=== PATIENT | male | born 2000 | race African-American/Black ===

== ENCOUNTER 2021-09-13 08:00 | Outpatient (CLI) | payer OTHER | END 2021-09-13 08:01 | disposition home or self-care (01) | LOC: LAB.N 08:00 | PROVIDERS: ATTEND Family Medicine | DX: J06.9 Acute upper respiratory infection, unspecified (principal); Z20.822 Contact with and (suspected) exposure to COVID-19 ==

== ENCOUNTER 2022-03-17 14:26 | Outpatient (CLI) | payer OTHER ==
--- NOTE | 2022-03-17 15:12 | MRI Report ---
PROCEDURE: LUMBAR SPINE WO INDICATIONS: LUMBAR RADICULOPATHY TECHNIQUE: Noncontrast sagittal T1 spin echo and T2 fast echo, sagittal STIR, axial T1 and T2 fast spin echo thr ough the lumbar spine. In cases with scoliosis, additional coronal T2 fast spin echo may be performe d. COMPARISON: None. FINDINGS: Image quality: Excellent. Alignment and Curvature: There is normal bony alignment. Bone Marrow: Marrow is of normal overall signal. No acute vertebral body compression fractures. Spinal Cord: Conus medullaris terminates at the normal level. Visualized cord demonstrates normal s ignal and size. Paraspinous Soft Tissues: No paravertebral masses. T12-L1: Normal in appearance. L1-L2: Normal in appearance. L2-L3: Normal in appearance. L3-L4: Normal in appearance. L4-L5: Normal in appearance. L5-S1: Normal in appearance. IMPRESSION: A normal MRI of the lumbar spine. No spinal canal stenosis, neural foraminal stenosis, or findings of focal nerve root impingement. No pain generating lesion identified. Reviewed by: Robert Sawyer MD on 03/17/2022 3:11 PM PDT Approved by: Robert Sawyer MD on 03/17/2022 3:11 PM PDT Station ID: [id number]
== END 2022-03-17 14:27 | disposition home or self-care (01) ==
LOC: DI 14:26
PROVIDERS: ATTEND Student in an Organized Health Care Education/Training Program
DX: M54.16 Radiculopathy, lumbar region (principal)

== ENCOUNTER 2022-07-06 08:32 | Outpatient (CLI) | payer OTHER ==
--- NOTE | 2022-07-06 12:54 | MRI Report ---
PROCEDURE: MRI brain without contrast INDICATIONS: HEADACHE TECHNIQUE: Noncontrast axial T1 spin echo, axial T2 fast spin echo, sagittal and axial FLAIR, coronal T2 fast sp in echo, axial gradient echo, axial diffusion and ADC through the brain. COMPARISON: None. FINDINGS: Image quality: Excellent. CSF Spaces: Basal cisterns are patent. No extra-axial fluid collections. Ventricles are normal in size and shape. Brain: No intracranial masses or hemorrhage. Amaro/white matter interface is normal. Brainstem appe ars normal. Diffusion-weighted images demonstrate no acute ischemic insult. No chronic ischemic ins ults. Normal intravascular flow voids are present. Skull and face: Calvarium has normal marrow signal. Orbits appear normal. Sinuses: Small retention cyst in the right maxillary and left sphenoid sinus measures less than 1 cm IMPRESSION: Normal MRI of the brain Small right maxillary and left sphenoid sinus retention cysts Reviewed by: Khari Florian MD on 07/06/2022 11:52 AM [facility] Approved by: Khari Florian MD on 07/06/2022 11:52 AM [facility] Station ID: [id number]
== END 2022-07-06 08:33 | disposition home or self-care (01) ==
LOC: DI 08:32
PROVIDERS: ATTEND General Practice
DX: R51.9 Headache, unspecified (principal); R11.0 Nausea; J34.1 Cyst and mucocele of nose and nasal sinus

== ENCOUNTER 2022-12-25 09:36 | Emergency (ER) | payer OTHER ==
[2022-12-25] MEDS ORDERED: SODIUM CHLORIDE 0.9% 1,000 ML IV STA (11:45)
[2022-12-25] MEDS ORDERED: ONDANSETRON 4 MG/2 ML VIAL IVP STA (11:45)
[2022-12-25 11:58] LABS: BASOPHILS % (AUTO) 0.7 %; EOSINOPHILS % (AUTO) 0.7 %; HGB - HEMOGLOBIN 13.5 g/dL (14.0-18.0); LYMPHOCYTES # (AUTO) 1.3 10^3/uL (1.5-3.5); LYMPHOCYTES % (AUTO) 30.3 %; MEAN CORPUSCULAR HEMOGLOBIN 26.2 pg (27.0-31.0); MEAN CORPUSCULAR HGB CONC 32.1 g/dL (32.0-36.0); MEAN CORPUSCULAR VOLUME 81.4 fL (80.0-94.0); MEAN PLATELET VOLUME 9.3 fL (7.4-11.4); MONOCYTES # (AUTO) 0.3 10^3/uL (0.0-1.0); MONOCYTES % (AUTO) 7.6 %; NEUTROPHILS # (AUTO) 2.6 10^3/uL (1.5-6.6); NEUTROPHILS % (AUTO) 60.5 %; PLT - PLATELET COUNT 287 10^3/uL (130-450); RED BLOOD COUNT 5.16 10^6/uL (4.70-6.10); RED CELL DISTRIBUTION WIDTH 12.4 % (12.0-15.0); WHITE BLOOD COUNT 4.2 x10^3/uL (4.8-10.8)
--- NOTE | 2022-12-25 12:12 | ED Physician Documentation ---
History of Present Illness - Stated complaint Stated Complaint: N/V/HEAD PX - Chief complaint Chief Complaint: General - History obtained from History obtained from: Patient - Additonal information Additional information: Patient is a 22-year-old male presenting for evaluation of nausea, vomiting and diarrhea starting this morning. Patient states that he was getting ready for a PT test and has been having ongoing back issues. Therefore he took 1200 mg of ibuprofen. He states shortly thereafter he started having several episodes of emesis and diarrhea. Denies any known blood in stools or emesis. He then developed a headache. He reports having ongoing nausea and dry heaving. Reports that the headache is throbbing. Denies any trauma. Denies that this is the worst headache. Does not take blood thinners. No fevers. Denies eating anything that could have caused his symptoms. Patient had an MRI in June of this year for headaches. Impression is that it was a normal MRI of the brain. Small right maxillary and left syncope noted sinus retention cyst. Review of Systems Constitutional: denies: Fever Cardiac: denies: Chest pain / pressure Respiratory: denies: Dyspnea GI: reports: Nausea, Vomiting, Diarrhea : denies: Dysuria Neurologic: reports: Headache. denies: Head injury PD PAST MEDICAL HISTORY - Past Medical History Past Medical History: Yes Cardiovascular: None Respiratory: None Endocrine/Autoimmune: None GI: None Psych: Depression, Anxiety - Past Surgical History Past Surgical History: No - Present Medications Home Medications: Ambulatory Orders Medication Instructions Recorded Confirmed FLUoxetine [PROzac] 40 mg PO DAILY 12/25/22 12/25/22 Ondansetron Odt [Zofran] 4 mg TL Q6H PRN #10 tablet 12/25/22 Propranolol [Inderal] 20 mg PO BID 12/25/22 12/25/22 - Allergies Allergies/Adverse Reactions: Allergies Allergy/AdvReac Type Severity Reaction Status Date / Time No Known Drug Allergies Allergy Verified 12/07/21 16:01 - Social History Does the pt smoke?: No Smoking Status: Never smoker PD ED PE NORMAL - General General: Alert and oriented X 3, No acute distress, Well developed/nourished - HEENT HEENT: Atraumatic, Moist mucous membranes, Pharynx benign - Neck Neck: Supple, no meningeal sign, No bony TTP - Cardiac Cardiac: RRR, No murmur - Respiratory Respiratory: No respiratory distress, Clear bilaterally - Abdomen Abdomen: Soft, Non tender - Derm Derm: Warm and dry - Extremities Extremities: No edema - Neuro Neuro: Alert and oriented X 3, stack yield engineer 2-12 intact, No motor deficit, No sensory deficit, Normal speech Eye Opening: Spontaneous Motor: Obeys Commands Verbal: Oriented GCS Score: 15 Results - Vitals Vitals: Vital Signs - 24 hr 12/25/22 12/25/22 09:47 14:50 Temperature 36.6 C Heart Rate 85 72 Respiratory 16 20 Rate Blood Pressure 125/82 H 113/63 O2 Saturation 99 100 Oxygen O2 Source Room air - Labs Labs: Laboratory Tests 12/25/22 12/25/22 11:52 11:52 WBC 4.2 L RBC 5.16 Hgb 13.5 L Hct 42.0 MCV 81.4 MCH 26.2 L MCHC 32.1 RDW 12.4 Plt Count 287 MPV 9.3 Neut # (Auto) 2.6 Lymph # (Auto) 1.3 L Towner # (Auto) 0.3 Eos # (Auto) 0.0 Baso # (Auto) 0.0 Absolute Nucleated RBC 0.00 Nucleated RBC % 0.0 Sodium 138 Potassium 4.3 Chloride 104 Carbon Dioxide 30 Anion Gap 4.0 L BUN 9 Creatinine 0.9 Estimated GFR (MDRD) 126 Glucose 116 H Calcium 9.9 Total Bilirubin 0.6 AST 18 ALT 20 Alkaline Phosphatase 56 Total Protein 7.6 Albumin 4.6 Globulin 3.0 Albumin/Globulin Ratio 1.5 Lipase 13 PD Medical Decision Making - ED course Complexity details: reviewed results, re-evaluated patient ED course: Pt is a 22 yo M with headache, vomiting, and diarrhea this morning. VSS. Normal neuro exam. Headache was not thunderclap at onset. ABdominal exam benign on initial and repeat evaluations. Labs reviewed including CBC and CMP. Pt still with nausea after zofran. Feeling better with migraine cocktail of toradol, reglan, benadryl. Pt ambulatory at discharge with steady gait. Advised on need for follow up with PCP and concerning symptoms to return for. Departure - Departure Disposition: 01 Home, Self Care Clinical Impression: Headache, Vomiting and diarrhea Condition: Stable Instructions: ED Cephalgia Unspecified, ED Vomiting Diarrhea Nonspecific Ad Prescriptions: Ondansetron Odt [Zofran] 4 mg TL Q6H PRN #10 tablet PRN Reason: Nausea / Vomiting Comments: I have sent a prescription to help you with nausea to [facility] in [place]. Please continue with fluids today and getting plenty of rest. I would recommend close follow-up with your primary care provider. Return to the emergency department if you develop any worsening symptoms such as worsening pain, ongoing vomiting or have any new concerns. Forms: PCP List, Activity restrictions Discharge Date/Time: 12/25/22 14:50
[2022-12-25 12:20] LABS: ALBUMIN 4.6 g/dL (3.2-5.5); ALBUMIN/GLOBULIN RATIO 1.5 (1.0-2.2); BILIRUBIN,TOTAL 0.6 mg/dL (0.2-1.0); CALCIUM 9.9 mg/dL (8.5-10.3); CREATININE 0.9 mg/dL (0.6-1.3); POTASSIUM 4.3 mmol/L (3.5-4.5); TOTAL PROTEIN 7.6 g/dL (6.4-8.9)
[2022-12-25] MEDS ORDERED: diphenhydrAMINE INJ 50 MG/ML VIAL IVP STA (12:50)
[2022-12-25] MEDS ORDERED: METOCLOPRAMIDE 10 MG/2 ML VIAL IVP STA (12:51)
[2022-12-25] MEDS ORDERED: KETOROLAC 15 MG/ML VIAL IVP STA (12:51)
[2022-12-25 14:52] VITALS: BP 113/63
== END 2022-12-25 14:50 | disposition home or self-care (01) ==
LOC: ED 09:36
DX: R11.2 Nausea with vomiting, unspecified (principal); R19.7 Diarrhea, unspecified; R51.9 Headache, unspecified
CPT/HCPCS: 36415; 80053; 83690; 85025; 96374; 96375; 99283; 99285; J1200; J2765

== ENCOUNTER 2022-12-29 15:08 | Emergency (ER) | payer OTHER ==
--- NOTE | 2022-12-29 16:19 | ED Physician Documentation ---
History of Present Illness - Stated complaint Stated Complaint: HEAD TWITCHES - Chief complaint Chief Complaint: General - History obtained from History obtained from: Patient - Additonal information Additional information: Sent in for head pain and 'twitching'. Headache has been intermittent for years, however today pain is persistent, aching/throbbing, located near occiput of scalp "inside" head. No medications taken prior to arrival. Review of Systems Constitutional: denies: Fever, Chills Eyes: denies: Loss of vision, Photophobia Musculoskeletal: denies: Neck pain, Back pain, Extremity pain Neurologic: reports: Headache. denies: Generalized weakness, Focal weakness, Numbness, Difficulty speaking, Syncope, Seizure, Head injury PD PAST MEDICAL HISTORY - Past Medical History Cardiovascular: None Respiratory: None Endocrine/Autoimmune: None GI: None Psych: Depression, Anxiety - Past Surgical History Past Surgical History: No - Present Medications Home Medications: Ambulatory Orders Medication Instructions Recorded Confirmed FLUoxetine [PROzac] 40 mg PO DAILY 12/25/22 12/29/22 Propranolol [Inderal] 20 mg PO BID 12/25/22 12/29/22 - Allergies Allergies/Adverse Reactions: Allergies Allergy/AdvReac Type Severity Reaction Status Date / Time No Known Drug Allergies Allergy Verified 12/07/21 16:01 - Social History Does the pt smoke?: No Smoking Status: Never smoker PD ED PE NORMAL - Vitals Vital signs reviewed: Yes - General General: Alert and oriented X 3, No acute distress, Well developed/nourished - HEENT HEENT: Atraumatic - Neck Neck: Supple, no meningeal sign - Cardiac Cardiac: RRR, Strong equal pulses - Respiratory Respiratory: No respiratory distress, Clear bilaterally - Abdomen Abdomen: Soft, Non tender, Non distended - Derm Derm: Normal color, Warm and dry, No rash - Extremities Extremities: No deformity, No tenderness to palpate, Normal ROM s pain - Neuro Neuro: Alert and oriented X 3, lockstitch sleeve setter 2-12 intact, No motor deficit, Normal speech - Psych Psych: Normal mood, Normal affect Results - Vitals Vitals: Oxygen O2 Source Room air PD Medical Decision Making - ED course Complexity details: reviewed results, re-evaluated patient, considered differential, d/w patient ED course: headache with "twitches", change in pattern from previous. No obvious exam abnormality. CT negative for acute findings. Patient reassured. PCP f/u advised. Departure - Departure Disposition: Home, Self Care Clinical Impression: Head pain, Twitching Condition: Stable Instructions: ED Cephalgia Unspecified Forms: PCP List Discharge Date/Time: 12/29/22 18:20
--- NOTE | 2022-12-29 18:17 | CT Report ---
PROCEDURE: HEAD WO INDICATIONS: HEADACHE/NEW PATTERN TECHNIQUE: Noncontrast 4.5 mm thick angled axial sections acquired from the foramen magnum to the vertex. For r adiation dose reduction, the following was used: automated exposure control, adjustment of mA and/or kV according to patient size. COMPARISON: MRI brain 07/06/2022 FINDINGS: Image quality: Excellent. CSF spaces: Basal cisterns are patent. No extra-axial fluid collections. Ventricles are normal in size and shape. Brain: No midline shift. No intracranial masses or hemorrhage. Amaro-white matter interface is norm al. Skull and face: Calvarium and visualized facial bones are intact, without suspicious lesions. Sinuses: Visualized sinuses and mastoids are clear. IMPRESSION: No acute intracranial abnormalities. Reviewed by: Boone Perez MD on 12/29/2022 6:16 PM PDT Approved by: Boone Perez MD on 12/29/2022 6:16 PM PDT Station ID: [id number]
[2022-12-29 18:22] VITALS: BP 128/86
== END 2022-12-29 18:20 | disposition home or self-care (01) ==
LOC: ED 15:08
DX: R51.9 Headache, unspecified (principal); R25.3 Fasciculation
CPT/HCPCS: 99282; 99284

== ENCOUNTER 2023-12-04 18:21 | Emergency (ER) | payer OTHER ==
[2023-12-04 18:32] VITALS: O2SAT 100
--- NOTE | 2023-12-04 19:12 | ED Physician Documentation ---
History of Present Illness - Stated complaint Stated Complaint: GI/DIZZY - Chief complaint Chief Complaint: General - History obtained from History obtained from: Patient - History of Present Illness Pain level max: 6 Pain level now: 6 - Additonal information Additional information: Patient is a 23-year-old male, past medical history of schizophrenia, anxiety and IBS. He states that he is having swelling and pain to his sacrum/coccyx. He states he went to the walk-in clinic today and they "did not do anything". He states that he also had 2 episodes of syncope today. He states he was lightheaded and dizzy. He states he has passed out before with no cause found. He states he also threw up once today and it has looked dark. He thinks there might have been blood in it but is unsure. He states the swelling and pain to the coccyx drained earlier today and had a bad smell to it. Review of Systems Constitutional: denies: Fever, Chills Nose: denies: Rhinorrhea / runny nose, Congestion Throat: denies: Sore throat Cardiac: denies: Chest pain / pressure, Palpitations Respiratory: denies: Dyspnea, Cough, Hemoptysis, Wheezing Skin: denies: Rash Musculoskeletal: denies: Neck pain, Back pain Neurologic: denies: Headache PD PAST MEDICAL HISTORY - Past Medical History Past Medical History: Yes Cardiovascular: None Respiratory: None Endocrine/Autoimmune: None GI: None, Other Psych: Depression, Anxiety, Schizophrenia Other Past Medical History: IBS - Past Surgical History Past Surgical History: No - Present Medications Home Medications: Ambulatory Orders Medication Instructions Recorded Confirmed FLUoxetine [PROzac] 40 mg PO DAILY 12/25/22 12/04/23 Propranolol [Inderal] 20 mg PO BID 12/25/22 12/04/23 OLANZapine [Zyprexa] 12/04/23 12/04/23 Sulfamethox/Trimeth 800/160 1 each PO BID #14 tablet 12/04/23 [Bactrim Ds 800/160] busPIRone [Buspar] 12/04/23 cephALEXin [Keflex] 500 mg PO Q6H #28 cap 12/04/23 cloNIDine [Catapres] 12/04/23 oxyCODONE [Roxicodone] 5 - 10 mg PO Q6H PRN #12 tablet 07/09/24 MDD 6 - Allergies Allergies/Adverse Reactions: Allergies Allergy/AdvReac Type Severity Reaction Status Date / Time No Known Drug Allergies Allergy Verified 12/07/21 16:01 - Social History Does the pt smoke?: No Smoking Status: Never smoker Does the pt drink ETOH?: No Does the pt have substance abuse?: No - Immunizations Immunizations are current?: Yes PD ED PE NORMAL - Vitals Vital signs reviewed: Yes - General General: Alert and oriented X 3, No acute distress - HEENT HEENT: Atraumatic, PERRL, Moist mucous membranes, Pharynx benign - Neck Neck: Supple, no meningeal sign, No bony TTP - Cardiac Cardiac: RRR, Strong equal pulses - Respiratory Respiratory: No respiratory distress, Clear bilaterally - Abdomen Abdomen: Soft, Non tender, Non distended - Rectal Rectal: Other (small pilonidal cyst with induration and mninimal erythema. TTP. Spontaneously drained. no purulent drainage here. ) - Derm Derm: Warm and dry - Extremities Extremities: Normal ROM s pain, No edema, No calf tenderness / cord - Neuro Neuro: Alert and oriented X 3 - Psych Psych: Normal mood, Normal affect Results - Vitals Vitals: Vital Signs - 24 hr 12/04/23 12/04/23 18:25 20:21 Temperature 36.8 C 36.5 C Heart Rate 93 88 Respiratory 18 16 Rate Blood Pressure 143/74 H 138/72 H O2 Saturation 100 100 Oxygen O2 Source Room air - EKG (time done) 1918 EKG releavant findings:: EKG personally interpreted by author of this note. Relevant findings are: Rate: Rate (enter#) (79) Rhythm: NSR [place]: Normal Intervals: Normal [place] QRS: Normal Ischemia: ST elevation c/w repol - Labs Labs: Laboratory Tests 12/04/23 12/04/23 19:28 19:28 WBC 11.3 H RBC 4.76 Hgb 12.6 L Hct 38.6 L MCV 81.1 MCH 26.5 L MCHC 32.6 RDW 12.6 Plt Count 322 MPV 9.6 Neut # (Auto) 8.0 H Lymph # (Auto) 2.1 Logan # (Auto) 1.0 Eos # (Auto) 0.1 Baso # (Auto) 0.0 Absolute Nucleated RBC 0.00 Nucleated RBC % 0.0 Sodium 138 Potassium 3.4 L Chloride 104 Carbon Dioxide 29 Anion Gap 5.0 L BUN 11 Creatinine 1.1 Estimated GFR (MDRD) 99 Glucose 82 Calcium 9.8 Total Bilirubin 0.5 AST 17 ALT 17 Alkaline Phosphatase 66 Total Protein 7.6 Albumin 4.4 Globulin 3.2 Albumin/Globulin Ratio 1.4 Lipase 24 - Rads (name of study) head CT Relevant Findings:: Final report received, See rad report PD Medical Decision Making - ED course Complexity details: reviewed results, re-evaluated patient, considered differential, d/w patient ED course: Patient with a pilonidal cyst/abscess. spontaneously drained. No drainage here other than bloody. indurated, not fluctuant. Will place on abx and have him follow up with his PCP for a wound check. Patient also states that he had a syncopal event today. He does not remember, passing out specifically, but thinks that he may have lost consciousness. He did not injure himself. No head, neck, back pain. He does remember feeling slightly lightheaded. He did not have any chest pain or palpitations. No significant findings on laboratory testing, EKG or head CT. He also states that he had SYLVIA earlier today. He states that it was dark and he think there may have been blood but he's not sure. He is not nauseated here. How do soft count untenanted. No significant lab abnormalities. Tolerating PO without difficulty. We have him follow up with his doctor for further care Patient counseled regarding signs and symptoms for which I believe an urgent re-evaluation would be necessary. Patient with good understanding of and agreement to plan and is comfortable going home at this time. This document was made in part using voice recognition software. While efforts are made to proofread this document, sound alike and grammatical errors may occur. No arryhthmias on telemetry. Patient called after discharge states [facility] does not have the meds. Requests meds be sent to [facility]. Rx sent there. Departure - Departure Disposition: Home, Self Care Clinical Impression: Infected pilonidal cyst Vomiting Qualifiers: Vomiting type: unspecified Nausea presence: with nausea Qualified Code(s): R11.2 - Nausea with vomiting, unspecified Syncope Qualifiers: Syncope type: unspecified Qualified Code(s): R55 - Syncope and collapse Condition: Good Instructions: ED Cyst Pilonidal Infec Abx Only, ED Nausea Vomiting Follow-Up: your,doctor in 3 days for recheck of your wound [Other] Prescriptions: Sulfamethox/Trimeth 800/160 [Bactrim Ds 800/160] 1 each PO BID #14 tablet cephALEXin [Keflex] 500 mg PO Q6H #28 cap oxyCODONE [Roxicodone] 5 - 10 mg PO Q6H PRN #12 tablet MDD 6 PRN Reason: pain Comments: Your prescriptions were sent to [facility] in [place]. Please take all antibiotics until gone. You should follow-up with your doctor, the walk-in clinic or here in 3 days for a wound check. This should continue to drain at home. Please return if you worsen. I am prescribing a short course of narcotic pain medication for you. These are potentially dangerous and addictive medications that should be used carefully. These medications may constipate you. Take an [id number] stool softener (docusate) twice daily with plenty of water while taking these medications. If you go 24 hours without a bowel movement, take [id number] miralax, per package instructions. Do not drink or drive while taking these medications. If you received narcotic or sedating medications while in the emergency department, do not drive for 24 hours. Store this medication in a safe, secure place and out of reach of children. It is a violation of federal law to give or sell this medication to another person or to use in a manner other than prescribed. The ED will not refill narcotic prescriptions, including prescriptions lost or stolen. To dispose of unwanted medications: 1. [facility] at [address] in [place] has a medication drop box. They accept prescription medications (in pill form) Sunday through Sunday 9:00 a.m. to 5:00 p.m. 2. [facility] accepts prescription medications (in pill form only) for disposal year round. Call for more information. 3. Contact the [facility] for the next [facility] sponsored prescription drug collection event. , [phone], or [phone]; Forms: PCP List Discharge Date/Time: 12/04/23 20:21
[2023-12-04] MEDS: cephALEXin 250 MG CAPSULE PO STA (19:20)
[2023-12-04] MEDS: SULFAMETH/TRIMETH DS 800/160 MG TABLET PO STA (19:20)
--- NOTE | 2023-12-04 19:39 | CT Report ---
PROCEDURE: Head WO INDICATIONS: syncope, head injury TECHNIQUE: Noncontrast 4.5 mm thick angled axial sections acquired from the foramen magnum to the vertex. For r adiation dose reduction, the following was used: automated exposure control, adjustment of mA and/or kV according to patient size. COMPARISON: 12/29/2022 FINDINGS: Image quality: Diagnostic. CSF spaces: Basal cisterns are patent. No extra-axial fluid collections. Ventricles are normal in size and shape. Brain: No midline shift. No intracranial masses or hemorrhage. Amaro-white matter interface is norm al. Skull and face: Calvarium and visualized facial bones are intact, without suspicious lesions. Sinuses: Mild right maxillary sinus mucosal thickening. The other visualized sinuses and mastoids ar e clear. IMPRESSION: No acute intracranial pathology. No acute calvarial fracture. Reviewed by: Uri Little MD on 12/04/2023 7:37 PM PDT Approved by: Uri Little MD on 12/04/2023 7:37 PM PDT Station ID: [id number]
[2023-12-04 19:41] LABS: BASOPHILS % (AUTO) 0.4 %; EOSINOPHILS # (AUTO) 0.1 10^3/uL (0.0-0.7); HCT - HEMATOCRIT 38.6 % (42.0-52.0); HGB - HEMOGLOBIN 12.6 g/dL (14.0-18.0); LYMPHOCYTES # (AUTO) 2.1 10^3/uL (1.5-3.5); LYMPHOCYTES % (AUTO) 18.7 %; MEAN CORPUSCULAR HEMOGLOBIN 26.5 pg (27.0-31.0); MEAN CORPUSCULAR HGB CONC 32.6 g/dL (32.0-36.0); MEAN CORPUSCULAR VOLUME 81.1 fL (80.0-94.0); MEAN PLATELET VOLUME 9.6 fL (7.4-11.4); MONOCYTES % (AUTO) 8.9 %; NEUTROPHILS % (AUTO) 70.6 %; PLT - PLATELET COUNT 322 10^3/uL (130-450); RED BLOOD COUNT 4.76 10^6/uL (4.70-6.10); RED CELL DISTRIBUTION WIDTH 12.6 % (12.0-15.0); WHITE BLOOD COUNT 11.3 x10^3/uL (4.8-10.8)
[2023-12-04 20:02] LABS: ALBUMIN 4.4 g/dL (3.2-5.5); ALBUMIN/GLOBULIN RATIO 1.4 (1.0-2.2); BILIRUBIN,TOTAL 0.5 mg/dL (0.2-1.0); CALCIUM 9.8 mg/dL (8.5-10.3); CREATININE 1.1 mg/dL (0.6-1.3); POTASSIUM 3.4 mmol/L (3.5-4.5); TOTAL PROTEIN 7.6 g/dL (6.4-8.9)
[2023-12-04 20:23] VITALS: BP 138/72
== END 2023-12-04 20:21 | disposition home or self-care (01) ==
LOC: ED 18:21
DX: L05.91 Pilonidal cyst without abscess (principal); R11.2 Nausea with vomiting, unspecified; R55 Syncope and collapse; F20.9 Schizophrenia, unspecified; F41.9 Anxiety disorder, unspecified; Z87.19 Personal history of other diseases of the digestive system
CPT/HCPCS: 36415; 70450; 80053; 83690; 85025; 93005; 99284; A9270